=== PATIENT | male | born 2000 | race Two or more races ===

== ENCOUNTER 2025-04-26 01:54 | Emergency (ER) | payer OTHER ==
[2025-04-26 02:02] VITALS: BP 126/84; PULSE 101; RESP 18; TEMP 99.5; BMI 19.8
[2025-04-26] MEDS: LACTATED RINGERS SOLUTION 1000 ML INFUS.BAG IV ONE (03:40)
[2025-04-26 03:49] LABS: ABSOLUTE IMMATURE GRANULOCYTES 0.02 x10^3/uL (0.0-0.031); BASOPHILS # 0.03 x10^3/uL (0.01-0.08); EOSINOPHIL % 0.7 % (0.8-7.0); EOSINOPHILS # 0.03 x10^3/uL (0.04-0.54); HEMATOCRIT 43.7 % (40.1-51.0); HEMOGLOBIN 14.4 g/dL (13.7-17.5); MEAN CELL VOLUME 89.9 fl (79.0-92.2); MEAN PLT VOLUME 10.2 fl (9.4-12.4); MONOCYTE # 0.31 x10^3/uL (0.30-0.82); MONOCYTE % 7.5 % (5.3-12.2); PLATELET COUNT 241 x10^3/uL (163-337); RDW 12.4 % (11.9-15.3)
[2025-04-26 04:10] LABS: POTASSIUM 4.3 mmol/L (3.5-5.1)
[2025-04-26 04:13] LABS: CALCIUM 9.7 mg/dL (8.5-10.1)
[2025-04-26 04:14] LABS: ALBUMIN 4.2 g/dl (3.4-5.0); BLOOD UREA NITROGEN 13.6 mg/dL (7-18); MAGNESIUM 2.1 mg/dL (1.8-2.4)
[2025-04-26 04:17] LABS: CREATININE 1.1 mg/dL (0.55-1.3)
[2025-04-26 04:19] LABS: BILIRUBIN,TOTAL 0.4 mg/dL (0.2-1); TOT PROT 7.3 g/dl (6.4-8.2)
[2025-04-26 07:01] LABS: HIV INTERPRETATION NEGATIVE (NEGATIVE)
[2025-04-26 07:02] LABS: HCV DIAGNOSTIC IN-HOUSE W/RFLX NON-REACTIVE (NONREACTIVE)
== END 2025-04-26 04:46 | disposition home or self-care (01) ==
LOC: JER 01:54
DX: R00.2 Palpitations (principal); R42 Dizziness and giddiness
CPT/HCPCS: 36415; 71046-TC-FY; 80053; 83735; 84439; 84443; 84484; 85025; 86803; 87389; 93005; 93010; 99285-25

== ENCOUNTER 2025-05-01 22:37 | Emergency (ER) | payer OTHER ==
[2025-05-01 22:45] VITALS: TEMP 98.5; BMI 19.8
[2025-05-02 00:38] VITALS: BP 96/64; PULSE 62; RESP 14
[2025-05-02 00:43] LABS: BASOPHILS # 0.04 x10^3/uL (0.01-0.08); HEMOGLOBIN 14.6 g/dL (13.7-17.5); MEAN PLT VOLUME 10.4 fl (9.4-12.4)
[2025-05-02 00:44] LABS: EOSINOPHIL % 2.6 % (0.8-7.0); HEMATOCRIT 43.3 % (40.1-51.0); MCHC 33.7 g/dl (32.3-36.5); MEAN CELL VOLUME 87.7 fl (79.0-92.2); MONOCYTE # 0.42 x10^3/uL (0.30-0.82); MONOCYTE % 10.9 % (5.3-12.2); PLATELET COUNT 235 x10^3/uL (163-337); RDW 12.1 % (11.9-15.3)
[2025-05-02 00:50] LABS: INR 1.27 (0.83-1.09); PROTHROMBIN TIME (PATIENT) 13.8 SEC (9.7-13.0)
[2025-05-02 00:53] LABS: ACTIVATED PTT 33.2 SECONDS (25.2-36.5)
[2025-05-02 01:02] LABS: POTASSIUM 3.9 mmol/L (3.5-5.1)
[2025-05-02 01:04] LABS: CALCIUM 9.4 mg/dL (8.5-10.1)
[2025-05-02 01:06] LABS: MAGNESIUM 2.4 mg/dL (1.8-2.4)
[2025-05-02 01:09] LABS: BILIRUBIN,TOTAL 0.5 mg/dL (0.2-1); CREATININE 1.1 mg/dL (0.55-1.3); TOT PROT 6.9 g/dl (6.4-8.2)
== END 2025-05-02 01:28 | disposition home or self-care (01) ==
LOC: JER 22:37
DX: R00.2 Palpitations (principal)
CPT/HCPCS: 36415; 71046-TC-FY; 80053; 83735; 84484; 85025; 85379; 85610; 85730; 93005; 93010; 99285-25